=== PATIENT | female | born 1995 | race Hispanic/Latino ===

== ENCOUNTER 2018-08-06 11:22 | Day surgery (SDC) | payer OTHER ==
[2018-08-06 12:13] LABS: Bilirubin Negative (Negative); Blood, Urine Negative (Negative); Clarity CLEAR (Clear); Glucose, Urine (Dipstick) 250 mg/dL (Negative); Leukocyte Negative (Negative); Nitrite Negative (Negative); Protein, Urine (Dipstick) Negative (Neg-Trace); Specific Gravity, Urine 1.025 (1.002-1.036); Urobilinogen 0.2 mg/dL (0.2-1.0)
[2018-08-06 12:22] LABS: #Basophils 0.1 thou/uL (0.0-0.2); #Eosinphils 0.1 thou/uL (0.0-0.7); #Lymphocytes 1.6 thou/uL (1.20-3.40); #Monocytes 0.7 thou/uL (0.11-0.59); #Neutrophils 10.9 thou/uL (1.40-6.50); %Basophils 0.6 % (0.0-1.0); %Eosinophils 0.7 % (0.0-10.0); %Lymphocytes 12.1 % (21.0-51.0); %Neutrophils 81.6 % (42.0-75.0); Hemoglobin 12.7 g/dL (12.0-16.0); Mean Corpuscular HGB CONC 34.2 g/dL (32.0-36.0); Mean Corpuscular Hemoglobin 29.4 pg (27.0-31.0); Mean Corpuscular Volume 85.9 fL (78.0-98.0); Mean Platelet Volume 7.1 fL (7.4-10.4); Platelet Count 280 thou/uL (130-400); RBC Distribution Width 11.8 % (11.5-14.5); Red Blood Cell (RBC) Count 4.31 mill/uL (4.20-5.40); White Blood Cell (WBC) Count 13.3 thou/uL (4.8-10.8)
[2018-08-06 12:39] LABS: ALT (SGPT) 16 U/L (8-55); AST (SGOT) 12 U/L (5-34); Albumin 3.6 g/dL (3.5-5.0); Alkaline Phosphatase 60 U/L (40-150); Anion Gap 11 mmol/L (10-20); BUN (Urea Nitrogen) 9 mg/dL (7.0-18.7); Bilirubin, Total 0.3 mg/dL (0.2-1.2); Calc. Creatinine Clearance 0 mL/min (70-130); Calcium 8.7 mg/dL (7.8-10.44); Carbon Dioxide 21 mmol/L (22-29); Chloride 106 mmol/L (98-107); Estimated GFR-MDRD Greater than 90; Globulin 3.1 g/dL (2.4-3.5); Glucose 114 mg/dL (70-105); Lipase 9 U/L (8-78); Potassium 3.5 mmol/L (3.5-5.1); Protein, Total 6.7 g/dL (6.0-8.3); Sodium 134 mmol/L (136-145)
--- NOTE | 2018-08-06 14:01 | ULT ---
LIMITED ABDOMINAL ULTRASOUND RIGHT LOWER QUADRANT: Date: 08/06/18 HISTORY: Pain. TECHNIQUE: Focused ultrasound of the right lower quadrant provided. The appendix could not be visualized on this examination. Right ovary is visualized and demonstrates normal blood flow on Doppler interrogation, which includes color flow and spectral analysis. The right ovary measures 3.7 x 2.8 cm. IMPRESSION: 1. Right ovary appears normal. 2. Appendix could not be visualized. POS: [facility]
[2018-08-06] MEDS ORDERED: PHENYLEPHRINE-NS 100 MCG/ML 10 ML SYRINGE ONE (15:09)
[2018-08-06] MEDS ORDERED: Glycopyrrolate 0.2 MG/ML 5 ML SYRINGE ONE (15:09)
[2018-08-06] MEDS ORDERED: Succinylcholine Chloride 20 MG/ML 10 ml SYRINGE FS ONE (15:09)
[2018-08-06] MEDS ORDERED: Lidocaine 1% PF 5 ML VIAL ONE (15:09)
[2018-08-06] MEDS ORDERED: PROPOFOL 200 MG/20 ML VIAL ONE (15:09)
[2018-08-06] MEDS ORDERED: Ondansetron PF 4 MG/2 ML Vial ONE (15:09)
[2018-08-06] MEDS ORDERED: ePHEDrine/0.9% NaCl/PF SYRINGE 50 mg/10 ml ONE (15:09)
[2018-08-06] MEDS ORDERED: cefOXitin Sodium/Dextrose,Iso 2 GM in Premix Bag 1 BAG IVPB SCH (17:45)
--- NOTE | 2018-08-06 18:34 | CT ---
CT ABDOMEN AND PELVIS PERFORMED WITH INTRAVENOUS CONTRAST ENHANCEMENT: HISTORY: Right lower quadrant pain. The patient is . Dr. Yost explained the risk of radiation and IV contrast during . Dr. Lopes and Dr. Yost felt the examination was medically necessa ry. FINDINGS: ABDOMEN: The lungs are clear of any infiltrative process. The liver, spleen, pancreas, and gallbladder regions are normal. The right and left adrenal glands are normal in size and appearance. The right and left kidneys are normal in size. There is a punctate, nonobstructing, lower pole left renal calculus. No significant periaortic or mesenteric adenopathy. PELVIS: An intrauterine is confirmed. The appendix is enlarged and inflamed. No abscess or perforation. No free fluid within the pelvis. IMPRESSION: CT findings compatible with appendicitis. Findings discussed with Dr. Yost. CODE CR POS: [facility]
--- NOTE | 2018-08-06 19:08 | HP ---
HISTORY OF PRESENT ILLNESS: Mandi Eduardo is a 23-year-old female, 4, miscarriage 2, para 1, 13-week intrauterine , onset of abdominal pain yesterday afternoon less than 24 hours ago, associated with nausea, vomiting, and anorexia. Reports to the emergency room and evaluated. Ultrasound revealed a viable uterine , failed to evaluate the appendix, and she had a good history and exam for appendicitis. Thus, the CAT scan was obtained, revealing changes consistent with appendicitis. Her white count is 13. ALLERGIES: NONE. TOBACCO: None. ALCOHOL: None. MEDICATIONS: None. PAST MEDICAL AND SURGICAL HISTORY: Noncontributory. She is accompanied by her significant other, unmarried who is the father. OB is in [place]. The patient lives here but travels frequently, has received her OB care in [place]. PHYSICAL EXAMINATION: VITAL SIGNS: Blood pressure 110/70, respiratory rate 18. HEAD, EARS, EYES, NOSE, AND THROAT: Unremarkable. LUNGS: Clear to auscultation. CARDIAC: Regular rate and rhythm without murmur or gallop. ABDOMEN: Soft. Gravid uterus. Tenderness in right lower quadrant with guarding. ASSESSMENT AND PLAN: Acute appendicitis. Recommend laparoscopic video appendectomy. Risks of infection, bleeding, reoperation, open procedure, premature delivery, nonviable delivery discussed. Questions answered. I had talked to the hospitalist, Dr. Salgado, and will plan outpatient check of heart tones postoperatively and plan on discharge home if all goes well. Job ID: [id number]
[2018-08-06] MEDS ORDERED: Bupivacaine/Epinephrine 0.25% 30 ML VIAL ONE (19:22)
[2018-08-06] MEDS ORDERED: Fentanyl 250 MCG/5 ML VIAL ONE (19:28)
[2018-08-06] MEDS ORDERED: SUGAMMADEX SODIUM 200 MG/2 ML VIAL ONE (20:25)
--- NOTE | 2018-08-06 21:11 | OP ---
DATE OF PROCEDURE: 08/06/2018 PREOPERATIVE DIAGNOSIS: Acute appendicitis. POSTOPERATIVE DIAGNOSIS: Acute appendicitis. PROCEDURE PERFORMED: Laparoscopic video appendectomy. ANESTHESIA: General, local of 0.25% Marcaine with epinephrine 30 mL. DESCRIPTION OF PROCEDURE: The patient was taken to the operating room where under general anesthesia, abdomen was prepared with ChloraPrep and draped in routine fashion. Local anesthetic was infiltrated in the skin and subcutaneous tissue at each port site. Right lateral subcostal incision was made and pneumoperitoneum to 15 mmHg was obtained with a Veress needle, replaced with a 5 port, laparoscope inserted. An infraumbilical incision was made and a 5 port placed. Lower abdominal midline incision was made and a 12 port placed under laparoscopic visualization, avoiding the uterus. Appendix was acutely inflamed and dissected free. Mesoappendix was taken down with a LigaSure to the stump of the appendix, divided with an Endo TANYA blue load stapler. Stapled cecal stump. Hemostasis gained with clips. Good hemostasis was noted. Irrigant and pneumoperitoneum evacuated. All instruments were removed. Suprapubic fascia was approximated with 0 Vicryl and skin with interrupted subdermal 4-0 Monocryl, and [place] glue applied. Job ID: [id number]
[2018-08-06] MEDS ORDERED: Fentanyl 100 MCG/2 ML VIAL ONE (21:23)
== END 2018-08-06 22:01 | disposition home or self-care (01) ==
LOC: ERS 11:22 → SDC 17:53
PROVIDERS: ATTEND Specialist
PROC: 0DTJ4ZZ Resection of Appendix, Percutaneous Endoscopic Approach (ICD-10-PCS; principal; 2018-08-06)
DX: O99.611 Diseases of the digestive system complicating pregnancy, first trimester (principal); K35.80 Unspecified acute appendicitis; Z3A.13 13 weeks gestation of pregnancy
CPT/HCPCS: 36415; 74177; 76705; 80053; 81003; 83690; 85025; 87480; 87491; 87510; 87591; 87660; 88304; 96365; J0131; J2001; J2405; J2704; J3010

== ENCOUNTER 2018-08-08 17:25 | Emergency (ER) | payer OTHER ==
--- NOTE | 2018-08-08 18:41 | ULT ---
PELVIC ULTRASOUND: HISTORY: Right lower quadrant abdominal pain. The patient is but has had two prior miscarriages. COMPARISON: None. TECHNIQUE: Multiplanar webster-scale and color Doppler images were obtained in a transabdominal ultrasound. FINDINGS: There is a liver intrauterine with a heart rate of 162 beats per minute. The average age o f the fetus, based off today's examination, is 13 weeks 4 days. The following measurements were take n and dates based off these measurements are as follows: BPD: 2.22 cm (13 weeks 5 days). HC: 8.86 cm (14 weeks 0 days). AC: 7.26 cm (13 weeks 6 days). FL: 1.11 cm (13 weeks 2 days). No free fluid is seen in the pelvis. Neither ovary could be visualized. IMPRESSION: Single live intrauterine with an estimated age of 13 weeks 4 days. POS: [facility]
[2018-08-08 18:53] LABS: Bilirubin Negative (Negative); Blood, Urine Negative (Negative); Clarity CLOUDY (Clear); Glucose, Urine (Dipstick) Negative (Negative); Leukocyte Negative (Negative); Nitrite Negative (Negative); Protein, Urine (Dipstick) Negative (Neg-Trace); Specific Gravity, Urine 1.011 (1.002-1.036)
== END 2018-08-08 19:30 | disposition home or self-care (01) ==
LOC: ERS 17:25
DX: O99.611 Diseases of the digestive system complicating pregnancy, first trimester (principal); K59.00 Constipation, unspecified; O99.341 Other mental disorders complicating pregnancy, first trimester; F41.9 Anxiety disorder, unspecified; F32.9 Major depressive disorder, single episode, unspecified; Z3A.12 12 weeks gestation of pregnancy
CPT/HCPCS: 76856; 81003